=== PATIENT | male | born 1970 | race Caucasian/White ===

== ENCOUNTER 2016-06-16 11:28 | Inpatient (IN) | payer OTHER ==
[~2016-06-16] VITALS: Ht 177.8 cm; Wt 89.0 kg
[2016-06-16 12:12] LABS: HEMATOCRIT 37.3 % (38.0-50.0); MCH 26.9 PG (29.0-34.0); MCHC 34.3 G/DL (30.0-36.0); MCV 78.4 FL (86-99); MEAN PLAT.VOLUME 10.4 uM^3 (9.0-12.4); PLATELET COUNT 316 K/uL (156-360); RBC DIS.WIDTH-CV 12.6 % (11.8-14.6); RBC DIS.WIDTH-SD 36.1 % (39-53); RED BLOOD COUNT 4.76 M/uL (4.00-5.50); WHITE BLOOD COUNT 14.7 K/uL (4.1-10.2)
[2016-06-16 12:26] LABS: CHLORIDE 96 mEq/L (99-109); POTASSIUM 4.3 mEq/L (3.7-5.4); SODIUM 132 mEq/L (136-147)
[2016-06-16 12:28] LABS: GLUCOSE 178 mg/dL (70-99)
[2016-06-16 12:29] LABS: ANION GAP 13 MEQ/L (2-14)
[2016-06-16 12:30] LABS: TOTAL BILIRUBIN 1.2 mg/dL (0.0-1.0)
[2016-06-16 12:32] LABS: ALKALINE PHOSPHATASE 268 IU/L (3-129)
[2016-06-16 12:33] LABS: UREA NITROGEN (BUN) 13 mg/dL (9-23)
[2016-06-16 12:35] LABS: LIPASE 49 U/L (1.0-51.0)
[2016-06-16 12:41] LABS: GFR ESTIMATE (CALCULATED) > 59 mL/min/
[2016-06-16 12:47] LABS: ADD MIUA? YES; BILIRUBIN NEGATIVE; BLOOD NEGATIVE; COLOR AMBER ((YELLOW)); GLUCOSE (STRIP) NEGATIVE; KETONES 20; LEUKOCYTES TRACE; NITRITE NEGATIVE; PROTEIN (STRIP) 100; SPECIFIC GRAVITY 1.024 (1.000-1.030)
[2016-06-16 12:52] LABS: BACTERIA RARE /HPF; CALCIUM OXALATE CRYSTALS 2+ /HPF; EPITHELIAL CELLS 1+ /HPF; HYALINE CASTS TNTC /LPF; MUCUS 3+ /LPF; RED BLOOD CELLS 0-5 /HPF (0-5); UCUL ADDED? NO
[2016-06-16] MEDS ORDERED: METFORMIN HCL1000 MG PO (16:24)
[2016-06-16] MEDS ORDERED: LISINOPRIL10 MG PO (16:24)
[2016-06-16] MEDS ORDERED: BYDUREON2 MG SC (16:24)
[2016-06-16] MEDS ORDERED: ATORVASTATIN CA20 MG PO (16:24)
[2016-06-16] MEDS ORDERED: JANUVIA100 MG PO (16:25)
[2016-06-16] MEDS ORDERED: DULOXETINE HCL20 MG PO (16:25)
[2016-06-16 18:20] VITALS: BP 127/81
[2016-06-16 19:13] VITALS: BP 95/57
[2016-06-16 22:36] VITALS: BP 122/65
[2016-06-17] VITALS (8 sets, daily range): BP systolic 102–128; BP diastolic 56–65
[2016-06-17 06:10] LABS: POINT-OF-CARE METER ID UU13113725
[2016-06-17 06:42] LABS: HEMATOCRIT 33.2 % (38.0-50.0); MCH 26.4 PG (29.0-34.0); MCHC 33.1 G/DL (30.0-36.0); MCV 79.6 FL (86-99); MEAN PLAT.VOLUME 10.8 uM^3 (9.0-12.4); PLATELET COUNT 248 K/uL (156-360); RBC DIS.WIDTH-CV 12.5 % (11.8-14.6); RBC DIS.WIDTH-SD 36.1 % (39-53); RED BLOOD COUNT 4.17 M/uL (4.00-5.50); WHITE BLOOD COUNT 15.1 K/uL (4.1-10.2)
[2016-06-17 06:48] LABS: INTER. NORMALIZED RATIO 1.3; PROTHROMBIN TIME 12.8 (9.2-11.2); PTT 31.7 (25-32)
[2016-06-17 07:05] LABS: ALKALINE PHOSPHATASE 212 IU/L (3-129); ANION GAP 11 MEQ/L (2-14); CHLORIDE 94 MEQ/L (99-109); GFR ESTIMATE (CALCULATED) > 59 mL/min/; GLUCOSE 166 mg/dL (70-99); SAMPLE HEMOLYSIS CHECK 0; SAMPLE ICTERIC CHECK 0; SAMPLE LIPEMIA CHECK 0; SODIUM 131 MEQ/L (136-147); TOTAL BILIRUBIN 1.3 MG/DL (0.0-1.0); UREA NITROGEN (BUN) 10 mg/dL (9-23)
[2016-06-17 14:45] LABS: TROP-I INTERPRETATION NEGATIVE; TROPONIN-I < 0.01 ng/mL (0.0-0.30)
[2016-06-17 18:16] LABS: TROP-I INTERPRETATION NEGATIVE; TROPONIN-I < 0.01 ng/mL (0.0-0.30)
[2016-06-17 22:07] LABS: TROP-I INTERPRETATION NEGATIVE; TROPONIN-I < 0.01 ng/mL (0.0-0.30)
[2016-06-18 03:20] VITALS: BP 98/56
[2016-06-18 07:07] LABS: HEMATOCRIT 29.8 % (38.0-50.0); MCH 27.2 PG (29.0-34.0); MCHC 33.9 G/DL (30.0-36.0); MCV 80.1 FL (86-99); MEAN PLAT.VOLUME 10.9 uM^3 (9.0-12.4); PLATELET COUNT 206 K/uL (156-360); RBC DIS.WIDTH-CV 12.5 % (11.8-14.6); RBC DIS.WIDTH-SD 36.1 % (39-53); RED BLOOD COUNT 3.72 M/uL (4.00-5.50); WHITE BLOOD COUNT 16.3 K/uL (4.1-10.2)
[2016-06-18 07:11] VITALS: BP 93/53
[2016-06-18 07:35] LABS: GFR ESTIMATE (CALCULATED) > 59 mL/min/; UREA NITROGEN (BUN) 10 mg/dL (9-23)
[2016-06-18 07:40] LABS: ANION GAP 8 MEQ/L (2-14); CHLORIDE 96 MEQ/L (99-109); GFR ESTIMATE (CALCULATED) > 59 mL/min/; GLUCOSE 165 mg/dL (70-99); POTASSIUM 4.1 MEQ/L (3.7-5.4); SAMPLE HEMOLYSIS CHECK 0; SAMPLE ICTERIC CHECK 0; SAMPLE LIPEMIA CHECK 0; SODIUM 131 MEQ/L (136-147); UREA NITROGEN (BUN) 10 mg/dL (9-23)
[2016-06-18 07:48] LABS: ALKALINE PHOSPHATASE 152 IU/L (3-129); TOTAL BILIRUBIN 1.7 MG/DL (0.0-1.0)
[2016-06-18 07:55] LABS: ABS NEUTROPHIL COUNT 14.5; ANISOCYTOSIS 1+; EOSINOPHIL ABS CT 0; INSTRUMENT ABS NEUTROPHIL CT 13.3 K/uL; LYMPHOCYTES 7.3 % (15.0-45.0); METAMYELOCYTES 0.9 %; PLAT.SUFFICIENCY ADEQUATE; SEG.NEUTROPHILS 69.1 % (46.0-76.0)
[2016-06-18 11:39] VITALS: BP 99/58
[2016-06-18 15:28] LABS: ADD MIUA? YES; BILIRUBIN NEGATIVE; BLOOD NEGATIVE; COLOR AMBER ((YELLOW)); GLUCOSE (STRIP) 150; KETONES 5; LEUKOCYTES NEGATIVE; NITRITE NEGATIVE; PROTEIN (STRIP) 30; SPECIFIC GRAVITY 1.027 (1.000-1.030)
[2016-06-18 15:40] LABS: BACTERIA NONE SEEN /HPF; EPITHELIAL CELLS 1+ /HPF; HYALINE CASTS 0-5 /LPF; MUCUS 4+ /LPF; RED BLOOD CELLS NONE SEEN /HPF (0-5); UCUL ADDED? NO; WHITE BLOOD CELLS 0-5 /HPF (0-5)
[2016-06-18 16:04] VITALS: BP 105/55
[2016-06-18 19:08] VITALS: BP 120/78
[2016-06-18 22:40] VITALS: BP 131/74
[2016-06-19 04:39] LABS: EOSINOPHIL (%) 3.7 % (0-5); EOSINOPHIL COUNT 0.4 K/uL (0-0.3); HEMATOCRIT 27.8 % (38.0-50.0); IMMATURE GRANULOCYTE (%) 0.4 % (0.0-0.7); IMMATURE GRANULOCYTE COUNT 0.1 K/uL; INSTRUMENT ABS NEUTROPHIL CT 8.5 K/uL; LYMPHOCYTE COUNT 1.2 K/uL (1.0-2.8); MCH 26.4 PG (29.0-34.0); MCHC 33.1 G/DL (30.0-36.0); MCV 79.7 FL (86-99); MEAN PLAT.VOLUME 10.5 uM^3 (9.0-12.4); MONOCYTE (%) 11.6 % (3-12); MONOCYTE COUNT 1.3 K/uL (0-0.8); NEUTROPHIL (%) 73.7 % (45-76); NEUTROPHIL COUNT 8.5 K/uL (1.8-6.4); PLATELET COUNT 223 K/uL (156-360); RBC DIS.WIDTH-CV 12.4 % (11.8-14.6); RBC DIS.WIDTH-SD 35.8 % (39-53); RED BLOOD COUNT 3.49 M/uL (4.00-5.50); WHITE BLOOD COUNT 11.6 K/uL (4.1-10.2)
[2016-06-19 04:49] LABS: CHLORIDE 99 mEq/L (99-109); SODIUM 134 mEq/L (136-147)
[2016-06-19 04:50] LABS: GLUCOSE 131 mg/dL (70-99)
[2016-06-19 04:52] LABS: ANION GAP 8 MEQ/L (2-14)
[2016-06-19 04:54] LABS: GFR ESTIMATE (CALCULATED) > 59 mL/min/
[2016-06-19 04:55] LABS: UREA NITROGEN (BUN) 9 mg/dL (9-23)
[2016-06-19 06:55] VITALS: BP 103/65
[2016-06-19 10:55] VITALS: BP 116/29
[2016-06-19] MEDS ORDERED: SENNA LAX8.6 MG PO (11:32)
[2016-06-19] MEDS ORDERED: DOCUSATE SODIU100 MG PO (11:32)
[2016-06-19] MEDS ORDERED: METOPROLOL SUCC25 MG PO (11:32)
[2016-06-19] MEDS ORDERED: ENDOCET 5-3251 EACH PO (11:32)
[2016-06-19] MEDS ORDERED: BISAC-EVAC10 MG PR (11:32)
== END 2016-06-19 15:41 | disposition home or self-care (01) | DRG 375 ==
LOC: EME 11:28 → 5EAST 16:21 → EDOF 16:21 → 5EAST 17:20
PROVIDERS: Hospitalist
PROC: 0FB03ZX Excision of Liver, Percutaneous Approach, Diagnostic (ICD-10-PCS; principal; 2016-06-18)
DX: C18.0 Malignant neoplasm of cecum (principal); C78.7 Secondary malignant neoplasm of liver and intrahepatic bile duct; G89.3 Neoplasm related pain (acute) (chronic); E11.9 Type 2 diabetes mellitus without complications; E87.1 Hypo-osmolality and hyponatremia; I10 Essential (primary) hypertension; E78.5 Hyperlipidemia, unspecified; F41.9 Anxiety disorder, unspecified; K59.00 Constipation, unspecified; Z87.891 Personal history of nicotine dependence
CPT/HCPCS: 71275; 74022; 74177; 77012; 80048; 80053; 81003; 82378; 82565; 82948; 83690; 84484; 84520; 85025; 85027; 85610; 85730; 87040; 88307; 88312; 93005; 93306; 99281; 99285; J1650; J2270; J2405; J3010; J7030; J7040

== ENCOUNTER → 2016-06-30 | Outpatient (CLI) | payer OTHER ==
[~2016-06-30] MED LIST: ATORVASTATIN CA20 MG PO; BISAC-EVAC10 MG PR; BYDUREON2 MG SC; DOCUSATE SODIU100 MG PO; DULOXETINE HCL20 MG PO; ENDOCET 5-3251 EACH PO; JANUVIA100 MG PO; LISINOPRIL10 MG PO; METFORMIN HCL1000 MG PO; METOPROLOL SUCC25 MG PO; OXAYDO5 MG PO; SENNA LAX8.6 MG PO
[2016-06-30 09:40] LABS: POINT-OF-CARE METER ID UU14174212
== END | disposition home or self-care (01) ==
LOC: OPR 08:39 → EDSTATUS 09:00
PROVIDERS: Internal Medicine Hematology & Oncology
DX: C18.9 Malignant neoplasm of colon, unspecified (principal); C78.7 Secondary malignant neoplasm of liver and intrahepatic bile duct; I10 Essential (primary) hypertension; E11.9 Type 2 diabetes mellitus without complications; E78.5 Hyperlipidemia, unspecified; Z82.49 Family history of ischemic heart disease and other diseases of the circulatory system; Z80.1 Family history of malignant neoplasm of trachea, bronchus and lung; Z79.84 Long term (current) use of oral hypoglycemic drugs
CPT/HCPCS: 77012; 82948; 88305; 88341 TC; 88342 TC; J3010

== ENCOUNTER 2016-07-02 11:14 | Emergency (ER) | payer OTHER ==
[~2016-07-02] VITALS: Ht 177.8 cm; Wt 91.8 kg
[2016-07-02 12:20] LABS: POINT-OF-CARE METER ID UU13113702
[2016-07-02 13:47] LABS: CHLORIDE 100 mEq/L (99-109); POTASSIUM 4.9 mEq/L (3.7-5.4); SODIUM 136 mEq/L (136-147)
[2016-07-02 13:54] LABS: HEMATOCRIT 33.3 % (38.0-50.0); MCH 26.1 PG (29.0-34.0); MCHC 32.7 G/DL (30.0-36.0); MCV 79.7 FL (86-99); MEAN PLAT.VOLUME 10.6 uM^3 (9.0-12.4); RBC DIS.WIDTH-CV 13.1 % (11.8-14.6); RBC DIS.WIDTH-SD 37.1 % (39-53); RED BLOOD COUNT 4.18 M/uL (4.00-5.50); WHITE BLOOD COUNT 14.2 K/uL (4.1-10.2)
[2016-07-02 13:56] LABS: PLATELET COUNT 364 K/uL (156-360)
[2016-07-02 14:07] LABS: GLUCOSE 175 mg/dL (70-99)
[2016-07-02 14:09] LABS: ANION GAP 12 MEQ/L (2-14); TROP-I INTERPRETATION NEGATIVE; TROPONIN-I < 0.01 ng/mL (0.0-0.30)
[2016-07-02 14:11] LABS: GFR ESTIMATE (CALCULATED) > 59 mL/min/
[2016-07-02 14:12] LABS: UREA NITROGEN (BUN) 10 mg/dL (9-23)
[2016-07-02 15:16] VITALS: BP 114/66
== END 2016-07-02 15:16 | disposition home or self-care (01) ==
LOC: EME 11:14
PROVIDERS: Emergency Medicine
DX: I95.1 Orthostatic hypotension (principal); R55 Syncope and collapse; E11.9 Type 2 diabetes mellitus without complications; Z85.038 Personal history of other malignant neoplasm of large intestine
CPT/HCPCS: 71020; 80048; 82948; 83880; 84484; 85027; 93005; 99281; 99285; J7030

== ENCOUNTER 2016-07-09 07:33 | Day surgery (SDC) | payer OTHER ==
[~2016-07-09] VITALS: Ht 177.8 cm; Wt 90.3 kg
[2016-07-09 08:12] LABS: POINT-OF-CARE METER ID UU13113696; POINT-OF-CARE USER ID HMLCJM07
== END 2016-07-09 09:40 | disposition home or self-care (01) ==
LOC: CATH 07:33
PROVIDERS: Surgery
DX: I87.8 Other specified disorders of veins (principal); C18.9 Malignant neoplasm of colon, unspecified; E11.9 Type 2 diabetes mellitus without complications; Z79.84 Long term (current) use of oral hypoglycemic drugs
CPT/HCPCS: 82948; C1751; C1894; J0690; J1644; J2250; J3010; S0020